=== PATIENT | female | born 1955 | race Two or more races ===

== ENCOUNTER 2018-05-07 10:27 | Inpatient (IN) | payer MEDICAID ==
[~2018-05-07] VITALS: Ht 162.6 cm; Wt 69.6 kg
[2018-05-07 10:38] VITALS: Ht 162.6 cm; Wt 69.6 kg
[2018-05-07 12:35] LABS: PLATELET COUNT 180 x10^3mcL (130-400); RED CELL DISTRIBUTION WIDTH 12.4 % (11.5-14.5)
[2018-05-07 13:01] LABS: microscopic required? YES; urine erythrocyte 3+ (NEGATIVE)
[2018-05-07 13:10] LABS: CALCIUM 8.4 mg/dL (8.5-10.1); CARBON DIOXIDE 21.5 mmol/L (21-32); CHLORIDE SERUM 103 mmol/L (98-107); CREATININE SERUM 0.8 mg/dL (0.6-1.0); GFR1 > 60 mL/min; GLUCOSE SERUM 103 mg/dL (74-106); POTASSIUM SERUM 3.2 mmol/L (3.5-5.1); SODIUM SERUM 137 mmol/L (136-145)
[2018-05-07 13:20] LABS: ALKALINE PHOSPHATASE 79 U/L (46-116); ALT/SGPT 33 U/L (14-59); AST/SGOT 40 U/L (15-37); BILIRUBIN TOTAL 0.63 mg/dL (0.20-1.00); TOTAL PROTEIN, SERUM 7.2 g/dL (6.4-8.2)
[2018-05-07 13:22] LABS: ALBUMIN 3.2 g/dL (3.4-5.0)
[2018-05-07 13:35] LABS: FREE T4 1.11 ng/dL (0.76-1.46); FREE THYROXINE INDEX 2.1 ug/dL (1.4-4.5); T4(THYROXINE) 6.2 ug/dL (4.7-13.3)
[2018-05-07 13:37] LABS: T3 TOTAL 0.64 ng/mL
[2018-05-07 13:53] LABS: ERYTHROCYTE SED RATE 25 mm/hr (0-30)
[2018-05-07 14:04] LABS: C REACTIVE PROTEIN 23.9 mg/dL (<=0.9)
[2018-05-07 14:10] LABS: BAND NEUTROPHIL 24 % (0-10); BASOPHIL 0 % (0-2); METAMYELOCTE 1 % (0-2); MONOCYTE 2 % (0-7); SEGMENTED NEUTROPHILS 70 % (37-75)
[2018-05-07 14:11] LABS: PLATELET MORPHOLOGY PLATELETS NORMAL; rbc morphology (normal/abnorm) NORMAL (NORMAL)
[2018-05-07 15:36] VITALS: BP 100/51
[2018-05-07 15:57] LABS: MAGNESIUM 1.8 mg/dL (1.8-2.4); PHOSPHOROUS 2.5 mg/dL (2.5-4.9)
[2018-05-07 20:55] VITALS: BP 102/51
[2018-05-08 05:39] VITALS: BP 120/58
[2018-05-08 06:58] LABS: BASOPHIL % 0 % (0-2); PLATELET COUNT 170 x10^3mcL (130-400); RED CELL DISTRIBUTION WIDTH 12.3 % (11.5-14.5)
[2018-05-08 07:08] LABS: ALKALINE PHOSPHATASE 87 U/L (46-116); ALT/SGPT 40 U/L (14-59); AST/SGOT 43 U/L (15-37); BILIRUBIN DIRECT 0.15 mg/dL (0.0-0.2); BILIRUBIN TOTAL 0.5 mg/dL (0.20-1.00); CALCIUM 8.2 mg/dL (8.5-10.1); CARBON DIOXIDE 27.2 mmol/L (21-32); CHLORIDE SERUM 104 mmol/L (98-107); CREATININE SERUM 0.8 mg/dL (0.6-1.0); GFR1 > 60 mL/min; GLUCOSE SERUM 98 mg/dL (74-106); POTASSIUM SERUM 3.7 mmol/L (3.5-5.1); SODIUM SERUM 136 mmol/L (136-145); TOTAL PROTEIN, SERUM 6.4 g/dL (6.4-8.2)
[2018-05-08 07:10] LABS: ALBUMIN 2.8 g/dL (3.4-5.0)
[2018-05-08 07:42] VITALS: BP 104/48
[2018-05-08 11:48] VITALS: BP 125/62
[2018-05-08 18:42] VITALS: BP 109/62
[2018-05-08 21:06] VITALS: BP 125/65
[2018-05-09 05:31] VITALS: BP 120/55
[2018-05-09] MEDS ORDERED: CLINDAMYCIN HC300 MG PO (09:39)
[2018-05-09 09:53] VITALS: BP 114/58
[2018-05-09 10:09] VITALS: BP 114/58
== END 2018-05-09 11:28 | disposition home or self-care (01) | DRG 720 ==
LOC: ED 10:27 → MU 14:03
PROVIDERS: Internal Medicine; Specialist
DX: A41.9 Sepsis, unspecified organism (principal); E87.3 Alkalosis; E44.0 Moderate protein-calorie malnutrition; L03.116 Cellulitis of left lower limb; I10 Essential (primary) hypertension; E87.6 Hypokalemia; R74.0 Nonspecific elevation of levels of transaminase and lactic acid dehydrogenase [LDH]; E78.5 Hyperlipidemia, unspecified; E05.90 Thyrotoxicosis, unspecified without thyrotoxic crisis or storm; Z68.30 Body mass index [BMI] 30.0-30.9, adult
CPT/HCPCS: 84439; J1644; J1885; J2405; J2543; J3490; J7030; J7050; Q0092; Q0162

== ENCOUNTER 2020-01-03 21:36 | Inpatient (IN) | payer OTHER, MEDICAID ==
[~2020-01-03] VITALS: Ht 162.6 cm; Wt 71.2 kg
[~2020-01-03 21:36] MED LIST: CLINDAMYCIN HC300 MG PO
[2020-01-03 21:47] VITALS: Ht 162.6 cm; Wt 71.2 kg
[2020-01-03 23:53] LABS: BASOPHIL % 0.1 % (0-2); PLATELET COUNT 184 x10^3mcL (130-400); RED CELL DISTRIBUTION WIDTH 12.3 % (11.5-14.5)
[2020-01-04 00:01] LABS: CALCIUM 8.7 mg/dL (8.5-10.1); CARBON DIOXIDE 26.3 mmol/L (21-32); CHLORIDE SERUM 100 mmol/L (98-107); CREATININE SERUM 0.9 mg/dL (0.6-1.0); GFR1 > 60 mL/min; GLUCOSE SERUM 113 mg/dL (74-106); POTASSIUM SERUM 3.4 mmol/L (3.5-5.1); SODIUM SERUM 135 mmol/L (136-145)
[2020-01-04 00:06] LABS: ALBUMIN 3.3 g/dL (3.4-5.0); ALKALINE PHOSPHATASE 63 U/L (46-116); ALT/SGPT 28 U/L (14-59); AST/SGOT 26 U/L (15-37); BILIRUBIN TOTAL 0.5 mg/dL (0.20-1.00)
[2020-01-04] MEDS ORDERED: ZESTRIL5 MG PO (02:04)
[2020-01-04] MEDS ORDERED: SIMVASTATIN5 M2 (02:11)
[2020-01-04 03:29] VITALS: BP 120/47
[2020-01-04 05:04] VITALS: BP 101/50
[2020-01-04 06:34] LABS: PLATELET COUNT 188 x10^3mcL (130-400); RED CELL DISTRIBUTION WIDTH 12.5 % (11.5-14.5)
[2020-01-04 06:58] LABS: BASOPHIL % 0 % (0-2)
[2020-01-04 07:04] LABS: CALCIUM 8.5 mg/dL (8.5-10.1); CARBON DIOXIDE 23.1 mmol/L (21-32); CHLORIDE SERUM 101 mmol/L (98-107); CHOLESTEROL 144 mg/dL (<200); CHOLESTEROL/HDL RATIO 2.6; CREATININE SERUM 0.8 mg/dL (0.6-1.0); GFR1 > 60 mL/min; GLUCOSE SERUM 105 mg/dL (74-106); HDL CHOLESTEROL 56 mg/dL (40-60); MAGNESIUM 1.8 mg/dL (1.8-2.4); PHOSPHOROUS 2.1 mg/dL (2.5-4.9); SODIUM SERUM 134 mmol/L (136-145); TRIGLYCERIDES 48 mg/dL (<150)
[2020-01-04 07:07] LABS: POTASSIUM SERUM 2.9 mmol/L (3.5-5.1)
[2020-01-04 07:48] LABS: T3 TOTAL 0.65 ng/mL
[2020-01-04 08:11] LABS: FREE T4 1.02 ng/dL (0.76-1.46); FREE THYROXINE INDEX 2.4 ug/dL (1.4-4.5); T4(THYROXINE) 6.4 ug/dL (4.7-13.3)
[2020-01-04 08:31] VITALS: BP 98/56
[2020-01-04 11:50] LABS: microscopic required? YES; urine erythrocyte 3+ (NEGATIVE)
[2020-01-04 16:18] VITALS: BP 96/43
[2020-01-04 21:08] VITALS: BP 132/62
[2020-01-05 05:41] VITALS: BP 126/65
[2020-01-05 07:17] LABS: BASOPHIL % 0.3 % (0-2); PLATELET COUNT 172 x10^3mcL (130-400); RED CELL DISTRIBUTION WIDTH 12.6 % (11.5-14.5)
[2020-01-05 07:48] LABS: CALCIUM 8.3 mg/dL (8.5-10.1); CARBON DIOXIDE 23.2 mmol/L (21-32); CHLORIDE SERUM 106 mmol/L (98-107); CREATININE SERUM 0.7 mg/dL (0.6-1.0); GFR1 > 60 mL/min; GLUCOSE SERUM 87 mg/dL (74-106); PHOSPHOROUS 1.8 mg/dL (2.5-4.9); POTASSIUM SERUM 3.6 mmol/L (3.5-5.1); SODIUM SERUM 140 mmol/L (136-145)
[2020-01-05 08:06] VITALS: BP 115/45
[2020-01-05 11:53] VITALS: BP 107/53
[2020-01-05 15:35] VITALS: BP 114/54
[2020-01-05 20:24] VITALS: BP 104/57
[2020-01-06 05:16] VITALS: BP 107/55
[2020-01-06 06:50] LABS: BASOPHIL % 0.2 % (0-2); PLATELET COUNT 175 x10^3mcL (130-400); RED CELL DISTRIBUTION WIDTH 12.6 % (11.5-14.5)
[2020-01-06 07:12] LABS: CALCIUM 8.6 mg/dL (8.5-10.1); CARBON DIOXIDE 29.2 mmol/L (21-32); CHLORIDE SERUM 107 mmol/L (98-107); CREATININE SERUM 0.7 mg/dL (0.6-1.0); GFR1 > 60 mL/min; GLUCOSE SERUM 81 mg/dL (74-106); POTASSIUM SERUM 3.5 mmol/L (3.5-5.1); SODIUM SERUM 142 mmol/L (136-145)
[2020-01-06] MEDS ORDERED: CLEOCIN HCL300 MG PO (07:30)
[2020-01-06 08:54] VITALS: BP 114/55
[2020-01-06 10:32] VITALS: BP 114/55
[2020-01-06 12:48] VITALS: BP 123/62
== END 2020-01-06 13:18 | disposition home or self-care (01) | DRG 872 ==
LOC: ED 21:36 → MU 01-04 00:36
PROVIDERS: Emergency Medicine; Internal Medicine; ADMIT Family Medicine
DX: A41.9 Sepsis, unspecified organism (principal); L03.116 Cellulitis of left lower limb; E87.1 Hypo-osmolality and hyponatremia; E44.1 Mild protein-calorie malnutrition; E87.6 Hypokalemia; E83.39 Other disorders of phosphorus metabolism; I10 Essential (primary) hypertension; E78.00 Pure hypercholesterolemia, unspecified; E02 Subclinical iodine-deficiency hypothyroidism; Z68.25 Body mass index [BMI] 25.0-25.9, adult; Z79.899 Other long term (current) drug therapy
CPT/HCPCS: 84439; 90658; 90732; C9113; G0378; J0295; J2405; J2543; J7030; Q0092